=== PATIENT | male | born 1980 | race Two or more races ===

== ENCOUNTER 2023-08-15 08:49 | Emergency (ER) | payer SELFPAY ==
[2023-08-15 09:01] VITALS: BP 141/78; PULSE 81; RESP 19; TEMP 98.3; BMI 36.0
== END 2023-08-15 12:03 | disposition home or self-care (01) ==
LOC: JERFT 08:49
DX: R50.9 Fever, unspecified (principal); R05.9 Cough, unspecified; J02.9 Acute pharyngitis, unspecified; M79.10 Myalgia, unspecified site; Z20.822 Contact with and (suspected) exposure to COVID-19
CPT/HCPCS: 0241U-QW; 87651; 99283-25